=== PATIENT | female | born 1995 | race African-American/Black ===

== ENCOUNTER 2020-01-27 10:36 | Emergency (ER) | payer MEDICAID, SELFPAY ==
--- NOTE | ~2020-01-27 | XR_ITS ---
XR ankle LT min 3V 01/27/2020 11:26 INDICATION: Left ankle pain PROCEDURE: 4 views left ankle COMPARISON: No prior studies for comparison. FINDINGS: Fracture, dislocation or subluxation is not identified. The soft tissues appear within norm al limits. No foreign bodies are identified. IMPRESSION: 1: NO ACUTE BONE OR JOINT ABNORMALITY IDENTIFIED. Reviewed, dictated and finalized at location A.
[2020-01-27 11:00] VITALS: BP 153/101; PULSE 80; RESP 16; TEMP 36.7; O2SAT 100
--- NOTE | 2020-01-27 11:05 | ED.GENADULT ---
HPI - General Adult General Chief complaint: Extremity Injury, Lower Stated complaint: left ankle sprain Time Seen by Provider: 01/27/20 11:05 Source: patient and RN notes reviewed Mode of arrival: ambulatory Limitations: no limitations History of Present Illness HPI narrative: 24-year-old -[place] female presents with complains of tenderness to left lateral ankle for 1 day. Tylenol last approximately 23:00 on 01/26/2020. Adelina says she was playing tag outside and heard a popping sound while running initially continued to play once she went inside pain started. No radiating pain. No numbness or tingling or loss of mobility. Denies inability to bear weight. Exacerbation factor consist of movement and ambulating. The relieving factor is immobility. Denies discoloration. Denies altered sensation, back pain, neck pain, and suspected foreign body. Denies fever or chills. Adelina denies being , LMP 01/13/20. Some parts of this dictation were generated by voice recognition software and may contain typographical and/or grammatical inaccuracies. Related Data Home Medications Medication Instructions Recorded Confirmed No Home Medications 01/27/20 01/27/20 Allergies Allergy/AdvReac Type Severity Reaction Status Date / Time No Known Allergies Allergy Verified 01/27/20 11:05 Review of Systems Review of Systems: Narrative: CONSTITUTIONAL: Denies fever, chills, sweats. EYES: Denies visual changes, redness, discharge. ENT: Denies rhinorrhea, congestion, sore throat, otalgia. CARDIOVASCULAR: Denies chest pain, palpitations, edema. RESPIRATORY: Denies dyspnea, wheezing, cough. GASTROINTESTINAL: Denies abdominal pain, nausea, vomiting, diarrhea. GENITOURINARY: Denies dysuria, hematuria, abnormal discharge SKIN: Denies rash or itching. MUSCULOSKELETAL: Denies acute back pain or myalgia. Complains of LT lateral ankle pain. NEUROLOGIC: Denies numbness or focal weakness. PSYCHIATRIC: Denies anxiety or depression. All other systems reviewed are negative, except as documented in HPI and below. [facility] Past Medical History Medical History (Updated 01/28/20 @ 00:00 by Roni Alejo) Gestational diabetes No further treatment after given Hypertension Surgical History Surgical History (Updated 01/27/20 @ 11:23 by NANCIE Adorno) No significant past surgical history Family History Family History (Updated 01/27/20 @ 11:24 by NANCIE Adorno) Mother Hypertension Father Diabetes mellitus Hypertension Grandparent Diabetes mellitus Social History Social History (Updated 01/27/20 @ 11:26 by NANCIE Adorno) Smoking status: Never smoker Tobacco type: cigarettes Second hand tobacco smoke exposure: Yes Alcohol intake: current Alcohol use details: occasional Substance use: current Substance use type: marijuana Living arrangements: with family Occupation/Education: unemployed Gender identity (if verbalized by the patient): Female Comments At time of signature, agree with nurse past medical, surgical, social, and family history. There is no relevant family history pertinent to the presenting complaint. Exam Narrative: Exam Narrative: GENERAL: This is a well-nourished, well-developed patient, in no apparent distress. Talks in full sentences without deficits and ambulates with mild LT antalgic gait without dyspnea. HEAD: normocephalic, atraumatic. EYES: PERRL. Sclera clear/white. Vision is grossly intact. NECK: Neck supple, non-tender without lymphadenopathy, masses or thyromegaly. CARDIOVASCULAR: Regular rate and rhythm without murmurs, gallops, or rubs. RESPIRATORY: Clear to auscultation. Breath sounds equal bilaterally. No wheezes, rales, or rhonchi. GASTROINTESTINAL: Abdomen soft, non-tender, nondistended. Bowel sounds are active. No hepato-splenomegaly, or palpable masses. No guarding. SKIN: warm, intact with no suspicious lesions or
[2020-01-27 11:43] VITALS: BP 126/91; PULSE 76
== END 2020-01-27 11:43 | disposition home or self-care (01) ==
PROVIDERS: Emergency Provider Nurse Practitioner Family
DX: S93.402A Sprain of unspecified ligament of left ankle, initial encounter (principal); X58.XXXA Exposure to other specified factors, initial encounter; I10 Essential (primary) hypertension
CPT/HCPCS: 73610; 99203; G0463

== ENCOUNTER 2020-03-10 10:39 | Emergency (ER) | payer MEDICAID, SELFPAY ==
[2020-03-10 11:11] VITALS: BP 131/83; PULSE 71; RESP 16; TEMP 36.8; O2SAT 99
--- NOTE | 2020-03-10 11:26 | ED.FEMALEGU ---
HPI - Female Genitourinary General Chief complaint: Urogenital-Female Stated complaint: Time Seen by Provider: 03/10/20 11:27 Source: patient and RN notes reviewed Mode of arrival: ambulatory Limitations: no limitations History of Present Illness HPI Narrative: This is a 24 years old female presented office for an evaluation of possible . She tried a urine test at home with result in inconclusive due to fade line. She also need a formal document from a provider for her to eligible for medical card. She has five children and lost two to misscarriage. Denies any symptoms. Her LMP is late by couple days. Related Data Home Medications Medication Instructions Recorded Confirmed No Home Medications 01/27/20 03/10/20 Allergies Allergy/AdvReac Type Severity Reaction Status Date / Time No Known Allergies Allergy Verified 03/10/20 11:11 Review of Systems Review of Systems: Narrative: CONSTITUTIONAL: Denies fever or feeling ill ENT: Denies congestion CARDIOVASCULAR: Denies chest pain RESPIRATORY: Denies dyspnea GASTROINTESTINAL: Denies nausea, vomiting GENITOURINARY: Denies vaginal discharge SKIN: Denies rash MUSCULOSKELETAL: Denies acute back pain NEUROLOGIC: Denies lightheaded PMFSH Past Medical History Medical History Gestational diabetes No further treatment after given Hypertension Surgical History Surgical History No significant past surgical history Family History Family History Mother Hypertension Father Diabetes mellitus Hypertension Grandparent Diabetes mellitus Social History Social History Smoking status: Never smoker Tobacco type: cigarettes Second hand tobacco smoke exposure: Yes Alcohol intake: current Substance use: current Substance use type: marijuana Gender identity (if verbalized by the patient): Female Comments At time of signature, I agree with nursing past medical, surgical, social and family history. There is no relevant family history pertinent to the presenting complaint. Exam Narrative: Exam Narrative: GENERAL: This is a well-nourished, well-developed patient, in no apparent distress. CARDIOVASCULAR: Regular rate and rhythm without murmurs, gallops, or rubs. RESPIRATORY: Clear to auscultation. Breath sounds equal bilaterally. No wheezes, rales, or rhonchi. GASTROINTESTINAL: Abdomen soft, non-tender, nondistended. Bowel sounds are active. No hepato-splenomegaly, or palpable masses. No guarding. SKIN: warm, intact with no suspicious lesions or rash, good texture and turgor. NEURO: awake, alert, and oriented to person, place and time. There were no obvious focal neurologic abnormalities. Steady gait [place] Coma Scale Eye Opening: Spontaneous 4 Anthony Coma Scale Motor: Obeys Commands 6 [place] Coma Scale Verbal: Oriented 5 Course Vital Signs Vital signs: Vital Signs Temperature 98.3 F 03/10/20 11:11 Pulse Rate 71 03/10/20 11:11 Respiratory Rate 16 03/10/20 11:11 Blood Pressure 131/83 03/10/20 11:11 Pulse Oximetry 99 03/10/20 11:11 Temperature 98.3 F 03/10/20 11:11 Pulse Rate 71 03/10/20 11:11 Respiratory Rate 16 03/10/20 11:11 Blood Pressure 131/83 03/10/20 11:11 Pulse Oximetry 99 03/10/20 11:11 MDM - Female Genitourinary MDM Narrative Medical decision making narrative: Discharge instructions reviewed with patient, as well as provided in writing per nursing staff. The instructions also include specific and strict return/GO TO THE ER as well as f/u information. All questions have been answered, and the patient deny any further questions with discharge and discharge plan. Lab Data Attestation: I reviewed the patient's lab results. Labs
== END 2020-03-10 11:35 | disposition home or self-care (01) ==
PROVIDERS: Emergency Provider Nurse Practitioner
DX: Z32.01 Encounter for pregnancy test, result positive (principal)
CPT/HCPCS: 81025; 99213; G0463